=== PATIENT | female | born 1975 | race Caucasian/White ===

== ENCOUNTER 2018-07-29 12:14 | Emergency (ER) | payer MEDICAID, OTHER ==
[2018-07-29 12:21] VITALS: BP 132/100
--- NOTE | 2018-07-29 13:46 | ED Physician Documentation ---
PD HPI NECK PAIN - Stated complaint Stated Complaint: NECK PAIN - Chief complaint Chief Complaint: Back Pain - History obtained from History obtained from: Patient - History of Present Illness Timing - onset: Other (4 days of left-sided neck pain radiating to the left arm. There is no specific injury. She is never had this before. She does note mild numbness and burning in the left arm.) Review of Systems Constitutional: denies: Fever, Chills Cardiac: denies: Chest pain / pressure, Palpitations Respiratory: denies: Dyspnea, Cough GI: reports: Abdominal Pain (She has chronic heartburn as well for which she would like a prescription) PD PAST MEDICAL HISTORY - Past Medical History Respiratory: Asthma - Past Surgical History Past Surgical History: Yes /[employer]: section - Present Medications Home Medications: Ambulatory Orders Medication Instructions Recorded Confirmed Budesonide/Formoterol Fumarate 1 puffs 07/29/18 [Symbicort 160-4.5 Mcg Inhaler] Hydrocodone/Acetaminophen 1 - 2 each PO Q6H PRN #14 tablet 07/29/18 [Hydrocodon-Acetaminophen 5-325] Omeprazole 20 mg PO DAILY #90 capsule. 07/29/18 predniSONE [Deltasone] 20 mg PO [id number] #21 tab 07/29/18 - Allergies Allergies/Adverse Reactions: Allergies Allergy/AdvReac Type Severity Reaction Status Date / Time codeine Allergy Emesis Verified 07/29/18 12:19 - Social History Does the pt smoke?: Yes Smoking Status: Current every day smoker Does the pt drink ETOH?: Yes Does the pt have substance abuse?: No - Immunizations Immunizations are current?: Yes PD ED PE NORMAL - Vitals Vital signs reviewed: Yes - General General: Alert and oriented X 3, No acute distress - Neck Neck: Supple, no meningeal sign, No bony TTP - Extremities Extremities: Other (She has mildly diminished sensation in a left C6 distribution with 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 She is treated for this with steroids and pain medication. She is to follow-up with her primary care physician. Also needed something for heartburn. Departure - Departure Disposition: 01 Home, Self Care Clinical Impression: Cervical radiculopathy at C6 Condition: Good Record reviewed to determine appropriate education?: Yes Instructions: ED Cervical Radiculopathy Prescriptions: Hydrocodone/Acetaminophen [Hydrocodon-Acetaminophen 5-325] 1 - 2 each PO Q6H PRN #14 tablet PRN Reason: pain Omeprazole 20 mg PO DAILY #90 capsule. predniSONE [Deltasone] 20 mg PO [id number] #21 tab Comments: Call your doctor to arrange a follow-up appointment, make the next available appointment. In the interim, return anytime if worse or if new symptoms develop. Your blood pressure was elevated today on check into the emergency department. This does not mean that you have hypertension, it is a common phenomenon to come to the emergency department and have elevated blood pressure. I recommend that you see your primary care physician within the week to have it rechecked when you are feeling better.
== END 2018-07-29 13:51 | disposition home or self-care (01) ==
LOC: ED 12:14
DX: M54.12 Radiculopathy, cervical region (principal); R03.0 Elevated blood-pressure reading, without diagnosis of hypertension; F17.200 Nicotine dependence, unspecified, uncomplicated
CPT/HCPCS: 99283

== ENCOUNTER 2018-09-08 08:00 | Outpatient (CLI) | payer MEDICAID ==
[2018-09-08 12:52] LABS: BASOPHILS # (AUTO) 0.1 10^3/uL (0.0-0.1); BASOPHILS % (AUTO) 0.9 %; EOSINOPHILS # (AUTO) 0.1 10^3/uL (0.0-0.7); EOSINOPHILS % (AUTO) 0.8 %; HGB - HEMOGLOBIN 13.5 g/dL (12.0-16.0); LYMPHOCYTES # (AUTO) 2.5 10^3/uL (1.5-3.5); LYMPHOCYTES % (AUTO) 25.5 %; MEAN CORPUSCULAR HEMOGLOBIN 28.8 pg (27.0-31.0); MEAN CORPUSCULAR HGB CONC 32.4 g/dL (32.0-36.0); MEAN PLATELET VOLUME 9.4 fL (7.9-10.8); MONOCYTES # (AUTO) 0.4 10^3/uL (0.0-1.0); MONOCYTES % (AUTO) 4.6 %; NEUTROPHILS # (AUTO) 6.7 10^3/uL (1.5-6.6); NEUTROPHILS % (AUTO) 68.2 %; PLT - PLATELET COUNT 361 10^3/uL (130-450); RED BLOOD COUNT 4.69 10^6/uL (4.20-5.40); RED CELL DISTRIBUTION WIDTH 14.1 % (12.0-15.0); WHITE BLOOD COUNT 9.8 x10^3/uL (4.8-10.8)
[2018-09-08 13:10] LABS: ALBUMIN 3.4 g/dL (3.2-5.5); ALBUMIN/GLOBULIN RATIO 0.9 (1.0-2.2); ALKALINE PHOSPHATASE 67 IU/L (42-121); ALT ALANINE AMINOTRANSFERASE 18 IU/L (10-60); AST ASPARTATE AMINOTRANSFERASE 16 IU/L (10-42); BILIRUBIN,TOTAL 0.5 mg/dL (0.2-1.0); BUN - BLOOD UREA NITROGEN 8 mg/dL (6-20); CARBON DIOXIDE - CO2 24 mmol/L (21-32); CHLORIDE 104 mmol/L (101-111); CHOL/HDL RATIO 4.6 (<4.4); CHOLESTEROL 151 mg/dL; CREATININE 0.8 mg/dL (0.4-1.0); GFR - MDRD 78 (>89); GLUCOSE 98 mg/dL (70-100); HDL CHOLESTEROL 33 mg/dL; LDL CHOLESTEROL,CALCULATED 95 mg/dL; LDL/HDL RATIO 2.9 (<4.4); SODIUM 137 mmol/L (135-145); VLDL CHOLESTEROL 23 mg/dL
== END 2018-09-08 23:59 ==
LOC: LAB.N 08:00
PROVIDERS: ATTEND Nurse Practitioner Gerontology
DX: Z13.9 Encounter for screening, unspecified (principal)
CPT/HCPCS: 36415; 80053; 80061; 83013; 83721; 84443; 85025

== ENCOUNTER 2018-09-12 14:30 | Outpatient (CLI) | payer MEDICAID | END 2018-09-12 23:59 | disposition home or self-care (01) | LOC: LAB.R 14:30 | PROVIDERS: ATTEND Nurse Practitioner Gerontology | DX: K21.9 Gastro-esophageal reflux disease without esophagitis (principal) | CPT/HCPCS: 83013 ==

== ENCOUNTER 2020-03-03 08:00 | Outpatient (CLI) | payer MEDICAID ==
[2020-03-03 12:11] LABS: BASOPHILS # (AUTO) 0.1 10^3/uL (0.0-0.1); BASOPHILS % (AUTO) 0.6 %; EOSINOPHILS # (AUTO) 0.1 10^3/uL (0.0-0.7); EOSINOPHILS % (AUTO) 1.3 %; LYMPHOCYTES # (AUTO) 2.5 10^3/uL (1.5-3.5); LYMPHOCYTES % (AUTO) 30.2 %; MEAN CORPUSCULAR HEMOGLOBIN 28.7 pg (27.0-31.0); MEAN CORPUSCULAR VOLUME 92.4 fL (81.0-99.0); MEAN PLATELET VOLUME 10.8 fL (7.9-10.8); MONOCYTES # (AUTO) 0.4 10^3/uL (0.0-1.0); MONOCYTES % (AUTO) 4.5 %; NEUTROPHILS # (AUTO) 5.2 10^3/uL (1.5-6.6); NEUTROPHILS % (AUTO) 63.2 %; PLT - PLATELET COUNT 303 10^3/uL (130-450); RED BLOOD COUNT 4.88 10^6/uL (4.20-5.40); RED CELL DISTRIBUTION WIDTH 13.2 % (12.0-15.0); WHITE BLOOD COUNT 8.2 x10^3/uL (4.8-10.8)
[2020-03-03 12:40] LABS: ALBUMIN 3.7 g/dL (3.2-5.5); ALKALINE PHOSPHATASE 64 IU/L (42-121); ALT ALANINE AMINOTRANSFERASE 21 IU/L (10-60); AST ASPARTATE AMINOTRANSFERASE 16 IU/L (10-42); BILIRUBIN,TOTAL 0.5 mg/dL (0.2-1.0); BUN - BLOOD UREA NITROGEN 8 mg/dL (6-20); CALCIUM 10.1 mg/dL (8.5-10.3); CARBON DIOXIDE - CO2 28 mmol/L (21-32); CHLORIDE 99 mmol/L (101-111); CHOL/HDL RATIO 4.1 (<4.4); CHOLESTEROL 151 mg/dL; CREATININE 0.8 mg/dL (0.4-1.0); GLUCOSE 100 mg/dL (70-100); HDL CHOLESTEROL 37 mg/dL; LDL CHOLESTEROL,CALCULATED 98 mg/dL; LDL/HDL RATIO 2.6 (<4.4); SODIUM 139 mmol/L (135-145); TOTAL PROTEIN 7.4 g/dL (6.7-8.2); VLDL CHOLESTEROL 16 mg/dL
== END 2020-03-03 23:59 | disposition home or self-care (01) ==
LOC: LAB.WCP 08:00
PROVIDERS: ATTEND Nurse Practitioner Family
DX: Z13.9 Encounter for screening, unspecified (principal)
CPT/HCPCS: 36415; 80053; 80061; 83721; 84443; 85025

== ENCOUNTER 2022-03-29 11:02 | Outpatient (CLI) | payer OTHER ==
--- NOTE | 2022-04-01 12:52 | Mammography Report ---
BILATERAL DIGITAL SCREENING MAMMOGRAM 3D/2D: 03/29/2022 CLINICAL: Routine screening. Comparison is made to exams dated: 05/20/2014 mammogram, 11/09/2013 mammogram, 11/09/2013, and 4 mammogram - [facility]. Both breasts are heterogeneously dense, which may obscure small masses (category c / 51-75% glandula r tissue). There is a 1.1 cm oval equal density mass in the right breast at 8 o'clock middle depth. This is mor e prominent and increased in size. No other significant masses, calcifications, or other findings are seen in either breast. IMPRESSION: INCOMPLETE: NEEDS ADDITIONAL IMAGING EVALUATION The 1.1 cm oval equal density mass in the right breast resembles a cyst or a lymph node and is indete rminate. An ultrasound is recommended. Based on the Tyrer Cuzick model (a risk assessment model) the patients lifetime risk is 8.9% and her 10 year risk is 1.9%. According to the ACR, ACS, and NCCN guidelines, an annual breast MRI exam donnie g with mammogram is recommended if the patients lifetime risk is 20% or greater. This exam was interpreted at Station ID: [id number]. NOTE: For mammograms, a report in lay terms will be sent to the patient. Approximately 15% of breast malignancies will not be visualized mammographically. In the management of a palpable breast mass, a negative mammogram must not discourage biopsy of a clinically suspicious lesion. Electronically Signed By: Jg Morley M.D. aty/monicarad:03/31/2022 10:49:24 ACR BI-RADS Category 0: Incomplete 3340F PARENCHYMAL PATTERN: (D) - The breast(s) demonstrate(s) heterogeneously dense fibroglandular parthomasy ma. BI-RADS CATEGORY: (0) - 0 Ultrasound [id number] Immediate follow-up LATERALITY: (R)
== END 2022-03-29 11:03 | disposition home or self-care (01) ==
LOC: DI.N 11:02
DX: Z12.31 Encounter for screening mammogram for malignant neoplasm of breast (principal); N63.13 Unspecified lump in the right breast, lower outer quadrant

== ENCOUNTER 2022-04-26 09:03 | Outpatient (CLI) | payer OTHER ==
--- NOTE | 2022-04-26 10:17 | Ultrasound Report ---
LIMITED ULTRASOUND OF RIGHT BREAST: 04/26/2022 CLINICAL: Patient returns for sonographic evaluation of right breast mass. [facility]. No prior exams were available for comparison. Color flow ultrasound of the right breast 9 o'clock region was performed. Rodriguez scale images of the r eal-time examination were reviewed. There is a 1.2 cm x 1.1 cm x 0.4 cm lobulated lymph node in the right breast at 9 o'clock middle dept h 4 cm from the nipple. This irregular lymph node displays a uniformly thin cortex and a prominent f atty hilum. This correlates with mammography findings. Color flow imaging demonstrates that there i s appropriate hilar vascularity present. IMPRESSION: BENIGN There is no sonographic evidence of malignancy. The 1.2 cm x 1.1 cm x 0.4 cm lymph node in the right breast has a benign appearance. Return to annual mammogram screening schedule is recommended. Findings and recommendations were conveyed to the patient at time of exam. This exam was interpreted at Station ID: [id number]. Electronically Signed By: Shivani santillan/:04/26/2022 09:35:51 Ultrasound BI-RADS: 2 Benign BI-RADS CATEGORY: (2) - 2 Mammogram [id number] return to screening LATERALITY: (B)
== END 2022-04-26 09:04 | disposition home or self-care (01) ==
LOC: DI 09:03
PROVIDERS: ATTEND Family Medicine
DX: R92.8 Other abnormal and inconclusive findings on diagnostic imaging of breast (principal)

== ENCOUNTER 2022-12-03 07:57 | Outpatient (CLI) | payer OTHER ==
[2022-12-03 12:14] LABS: BASOPHILS # (AUTO) 0.1 10^3/uL (0.0-0.1); BASOPHILS % (AUTO) 0.6 %; EOSINOPHILS # (AUTO) 0.1 10^3/uL (0.0-0.7); EOSINOPHILS % (AUTO) 1.3 %; HCT - HEMATOCRIT 43.3 % (37.0-47.0); HGB - HEMOGLOBIN 13.5 g/dL (12.0-16.0); LYMPHOCYTES # (AUTO) 2.5 10^3/uL (1.5-3.5); LYMPHOCYTES % (AUTO) 29.3 %; MEAN CORPUSCULAR HEMOGLOBIN 28.2 pg (27.0-31.0); MEAN CORPUSCULAR HGB CONC 31.2 g/dL (32.0-36.0); MEAN CORPUSCULAR VOLUME 90.6 fL (81.0-99.0); MEAN PLATELET VOLUME 10.9 fL (7.9-10.8); MONOCYTES # (AUTO) 0.4 10^3/uL (0.0-1.0); NEUTROPHILS # (AUTO) 5.3 10^3/uL (1.5-6.6); NEUTROPHILS % (AUTO) 63.6 %; PLT - PLATELET COUNT 350 10^3/uL (130-450); RED BLOOD COUNT 4.78 10^6/uL (4.20-5.40); RED CELL DISTRIBUTION WIDTH 14.1 % (12.0-15.0); WHITE BLOOD COUNT 8.4 x10^3/uL (4.8-10.8)
[2022-12-03 12:44] LABS: ALBUMIN 3.4 g/dL (3.2-5.5); ALBUMIN/GLOBULIN RATIO 0.9 (1.0-2.2); ALKALINE PHOSPHATASE 71 IU/L (42-121); ALT ALANINE AMINOTRANSFERASE 15 IU/L (10-60); AST ASPARTATE AMINOTRANSFERASE 12 IU/L (10-42); BILIRUBIN,TOTAL 0.4 mg/dL (0.2-1.0); BUN - BLOOD UREA NITROGEN 9 mg/dL (6-20); CALCIUM 8.7 mg/dL (8.5-10.3); CARBON DIOXIDE - CO2 27 mmol/L (21-32); CHLORIDE 106 mmol/L (101-111); CHOL/HDL RATIO 4.5 (<4.4); CHOLESTEROL 157 mg/dL; CREATININE 0.7 mg/dL (0.4-1.0); GFR - MDRD 89 (>89); GLUCOSE 128 mg/dL (70-100); HDL CHOLESTEROL 35 mg/dL; LDL CHOLESTEROL,CALCULATED 91 mg/dL; LDL/HDL RATIO 2.6 (<4.4); POTASSIUM 3.8 mmol/L (3.5-5.0); SODIUM 138 mmol/L (135-145); TOTAL PROTEIN 7.1 g/dL (6.7-8.2); TRIGLYCERIDES 157 mg/dL; VLDL CHOLESTEROL 31 mg/dL
[2022-12-03 12:46] LABS: THYROID STIMULATING HORMONE 2.74 uIU/mL (0.34-5.60)
== END 2022-12-03 07:58 | disposition home or self-care (01) ==
LOC: LAB.N 07:57
PROVIDERS: ATTEND Nurse Practitioner
DX: R53.83 Other fatigue (principal); F32.A Depression, unspecified
CPT/HCPCS: 36415; 80053; 80061; 83721; 84443; 85025

== ENCOUNTER 2023-03-28 09:27 | Outpatient (CLI) | payer OTHER ==
[2023-03-28 13:23] LABS: CREATININE,URINE 67.8 mg/dL; ESTIMATED AVERAGE GLUCOSE 111 mg/dL (70-100); HEMOGLOBIN A1c% 5.5 % (4.27-6.07); MICROALBUMIN,URINE < 0.7 mg/dL
== END 2023-03-28 09:28 | disposition home or self-care (01) ==
LOC: LAB.N 09:27
PROVIDERS: ATTEND Nurse Practitioner
DX: E11.9 Type 2 diabetes mellitus without complications (principal)
CPT/HCPCS: 36415; 82043; 82570; 83036